=== PATIENT | female | born 1930 | race Caucasian/White ===

== ENCOUNTER 2017-10-06 19:23 | Inpatient (IN) | payer OTHER ==
[~2017-10-06] VITALS: Ht 137.2 cm; Wt 68.6 kg
[~2017-10-06 19:23] MED LIST: ACETAMINOPHEN/O1 TAB PO; AMITRIPTYLINE H10 M1 PO; MAGNESIUM OXID400 MG PO; METAMUCIL1 PAC PO; PANTOPRAZOLE SO40 MG PO; PERIOGARD 473473 ML PO; VERAPAMIL HCL80 MG PO; VITAMIN D50000 IU PO; XARELTO20 MG PO
--- NOTE | 2017-10-06 19:39 | ED GENERAL ADULT ---
History of Present Illness General Chief Complaint: General Adult Stated Complaint: "VOMITING,DIZZINESS, RAPID EYE MOVEMENT,ABD PAIN" Source: patient, family, old records Exam Limitations: no limitations Vital Signs & Intake/Output Vital Signs & Intake/Output Vital Signs Date Time Temp Pulse Resp B/P B/P Pulse O2 O2 Flow FiO2 Mean Ox Delivery Rate 10/07 0029 98.2 64 18 166/80 94 Room Air 10/07 0008 68 160/74 10/06 1934 97.5 76 20 175/90 95 Room Air Allergies Coded Allergies: poison lara extract (Severe, SWELLING ALL OVER 05/13/15) Sulfa (Sulfonamide Antibiotics) (UNKNOWN 05/13/15) Reconcile Medications Amitriptyline HCl 10 MG TABLET 3 TAB PO QHS UNKNOWN (Reported) Cholecalciferol (Vitamin D3) (Vitamin D3) 50,000 UNIT CAPSULE 1 CAP PO QW SUPPLEMENT (Reported) Gabapentin 100 MG CAPSULE 1 CAP PO QHS UNKNOWN (Reported) Rivaroxaban (Xarelto) 20 MG TABLET 1 TAB PO DAILY BLOOD THINNER (Reported) with food Tramadol HCl 50 MG TABLET 1 TAB PO BID PAIN (Reported) Verapamil HCl 80 MG TABLET 1 TAB PO BID HEART (Reported) Triage Note: PT TO TRIAGE WITH DAUGHTER WHO STATES A HALF HOUR AGO PT VOMITED, GOT VERY DIAPHORETIC AND DIZZY. PT C/O DIZZINESS HERE ON ARRIVAL. DENIES CP/SOB. A/O. Triage Nurses Notes Reviewed? yes HPI: This is an 87-year-old female with history of hypertension, A. fib on Xarelto, prior pulmonary embolism, presenting to the emergency department with an episode of abrupt onset dizziness, nausea without vomiting, and difficulty with speech. She was also reported to have felt "sweaty ". Patient was in the car with her daughters when the symptoms started. They were not obviously positional. She had no precipitating trauma or illness or travel. She was initially resistant to coming to the emergency department but eventually acquiesced. She arrives about 1.5 hours after the onset of symptoms. Upon my initial evaluation, the symptoms have completely abated she denies any nausea or dizziness or speech difficulty. She further denies any headache or shortness of breath or chest pain or abdominal pain or diarrhea or constipation or change in appetite. Patient states that she has been compliant with all medications including her Xarelto. (Suraj HIDALGO,Jose) Past History Travel History Traveled to [place] past 21 day No Medical History Any Pertinent Medical History? see below for history Neurological: NONE EENT: NONE Cardiovascular: AFIB, hypertension Respiratory: NONE Gastrointestinal: NONE Hepatic: NONE Renal: NONE Musculoskeletal: NONE Psychiatric: NONE Endocrine: NONE Blood Disorders: PE Cancer(s): NONE SAP PI DEVELOPER/Reproductive: NONE History of MRSA: No History of VRE: No History of CDIFF: No Surgical History Surgical History: LUMBAR SURGERY Psychosocial History Who do you live with Patient/Self Services at Home None What is your primary language Vietnamese Tobacco Use: Never used Family History Family History, If Any: MOTHER FH: stroke BROTHER FH: diabetes mellitus FH: stroke Hx Contributory? No (Jose Ruelas MD) Review of Systems Review of Systems Constitutional: Reports: see HPI, diaphoresis, malaise. EENTM: Reports: see HPI. Respiratory: Reports: no symptoms. Cardiovascular: Reports: no symptoms. GI: Reports: see HPI, nausea. Genitourinary: Reports: no symptoms. Musculoskeletal: Reports: no symptoms. Skin: Reports: no symptoms. Neurological/Psychological: Reports: see HPI. Hematologic/Endocrine: Reports: no symptoms. Immunologic/Allergic: Reports: no symptoms. Comments Patient is able to speak some [place], but her primary language is Vietnamese and her daughters serve to fill in the language gaps. (Jose Ruelas MD) Physical Exam Physical Exam General Appearance: well developed/nourished, no apparent distress, alert, anxious, obese Head: normal appearance Eyes: Bilateral: normal appearance, PERRL, EOMI. Ears, Nose, Throat: normal pharynx, normal ENT inspection, hearing grossly normal Comments: Elderly female, no acute distress. Alert and oriented 4. Speech intact. 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 Cardiopulmonary exam is within normal limits and significant only for irregular heart rhythm. Her lungs are clear. Abdomen is soft, nontender, nondistended. Intact pulse movement sensation in all extremities. Core Measures ACS in differential dx? Yes CVA/TIA Diagnosis: Yes NIH Stroke Scale (24 Hours) NIH Stroke Scale (24 Hours) Response Value Level of Consciousness alert 0 LOC Questions answers both correctly 0 LOC Commands obeys both correctly 0 Best Gaze normal 0 Visual Palafox no visual loss 0 Facial Paresis minor 1 Motor Arm - Left no drift 0 Motor Arm - Right no drift 0 Motor Leg - Left no drift 0 Motor Leg - Right no drift 0 Limb Ataxia no ataxia 0 Sensory normal 0 Best Language no aphasia 0 Dysarthria normal articulation 0 Extinction and Inattention no neglect 0 Total 1 Sepsis Present: No Sepsis Focused Exam Completed? No (Suraj HIDALGO,Joes) Progress Differential Diagnoses I considered the following diagnoses in my evaluation of the patient: Some concern for TIA in this patient given exam, history, and presentation. NIH stroke scale is 1, but this is for a chronic finding and the patient is otherwise neurologically intact upon arrival making the diagnosis of cerebrovascular accident very unlikely. Some concern for posterior circulation pathology given history of vertiginous dizziness prior to arrival. Could also be underlying metabolic derangement or occult infection. Diagnosis of ACS is also considered given history of diaphoresis with onset of symptoms, however would be highly atypical. Plan of Care: Orders Procedure Date/time Status Regular Diet 10/07 B Active TROPONIN LEVEL 10/07 0600 Active MAGNESIUM 10/07 06 Active CBC WITHOUT DIFFERENTIAL 10/07 06 Active BASIC ELECTROLYTES PLUS BUN&CR 10/07 06 Active EKG 10/07 0600 Active Weight 10/07 0024 Active Vital Signs 10/07 0024 Active Teach/Educate 10/07 0024 Active Pain Treatment and Response 10/07 002 Active Nutritional Intake, Monitor 10/07 002 Active Isolation 10/07 0024 Active Intake & Output 10/07 0024 Active Patient Care Conference 10/07 0024 Active Activity/Ambulation 10/07 0024 Active TROPONIN LEVEL 10/06 2300 Complete Patient Data 10/06 2236 Active Telemetry/Linoleum Mechanic 10/06 223 Active Admit to inpatient 10/06 2235 Active Vital Signs 10/06 223 Complete Code Status 10/06 223 Active Straight Cath 10/06 2014 Active FingerStick- Glucose 10/06 2014 Active CULTURE,URINE 10/06 2014 Active URINALYSIS 10/06 2014 Complete TROPONIN LEVEL 10/06 2014 Complete PARTIAL THROMBOPLASTIN TIME 10/06 2014 Complete PROTHROMBIN TIME 10/06 2014 Complete COMPREHENSIVE METABOLIC PANEL 10/06 2014 Complete CBC WITHOUT DIFFERENTIAL 10/06 2014 Complete Intake & Output 10/06 195 Complete EKG 10/06 1927 Active Laboratory Tests 10/06/17 2319: Troponin I < 0.01 08/18/18 2211: Urine Color YEL, Urine Clarity CLEAR, Urine pH 7.5, Ur Specific [place] 1.010, Urine Protein NEG, Urine Ketones NEG, Urine Nitrite NEG, Urine Bilirubin NEG, Urine Urobilinogen 0.2, Ur Leukocyte Esterase SMALL H, Ur Microscopic SEDIMENT EXAMINED, Urine WBC 1-3 H, Ur Epithelial Cells RARE, Urine Hemoglobin NEG, Urine Glucose NEG 10/06/172122: Anion Gap 10, Estimated GFR > 60, BUN/Creatinine Ratio 31.7 H, Glucose 121 H, Calcium 9.3, Total Bilirubin 0.3, AST 22, ALT 31, Alkaline Phosphatase 75, Troponin I < 0.01, Total Protein 6.3, Albumin 4.1, Globulin 2.2, Albumin/ Globulin Ratio 1.9 10/06/172044: PT 15.9 H, INR 1.45 H, APTT 27, CBC w Diff NO MAN DIFF REQ, RBC 4.67, MCV 93.1 , MCH 31.9 H, MCHC 34.2, RDW 13.4, MPV 11.2 H, Gran % 79.5 H, Lymphocytes % 16.3 L, Monocytes % 3.4, Eosinophils % 0.4, Basophils % 0.4, Absolute Granulocytes 9.2 H, Absolute Lymphocytes 1.9, Absolute Monocytes 0.4, Absolute Eosinophils 0.1, Absolute Basophils 0 Microbiology 10/06 2210 URINE ROUT: Urine Culture - RECD Plan for troponin 2, EKG, urinalysis with culture, CTA head and neck, CBCs, CMP , coags, possible admission for TIA workup. Labs are essentially unremarkable. CTA head and neck are unremarkable. EKG shows rate controlled A. fib. Patient able to walk the department without difficulty. Given that she lives alone, the patient's daughters are very concerned that she is not safe to go home tonight and I agree that in this particular scenario, it is more reasonable to pursue inpatient workup for TIA. Patient admitted to medicine service for further management. Patient remains hemodynamically and neurologically stable while under my care in the emergency department with no recurrence of aphasia or dizziness. Care signed out to Dr. Peoples Initial ED EKG: AFIB, no ST T wave changes, LAFB, a fib, rate controlled (Suraj HIDALGO,Jose) Departure Departure Time of Disposition: 2256 Disposition: STILL A PATIENT Condition: Stable Clinical Impression Primary Impression: TIA (transient ischemic attack) Referrals: Latasha HIDALGO,Felipe Garcia (PCP/Family) Departure Forms: Customer Survey General Discharge Information Admission Note Spoke With: Manuel Paulson MD Documentation of Exam: Documentation of any treatments & extenuating circumstances including Concerns Regarding Discharge (functional status, medication knowledge or non-compliance, living conditions, etc.) that warrant an admission rather than observation: Telemetry monitoring, echocardiogram, MRI brain, reassessment. (Jose Ruelas MD) Resident Co-Sign Statement Statement: ED Attending supervision documentation- x I saw and evaluated the patient. I have also reviewed all the pertinent lab results and diagnostic results. I agree with the findings and the plan of care as documented in the Resident's documentation. [] I have reviewed the ED Record and agree with the Resident's documentation. [] Additions or exceptions (if any) to the Resident's note and plan are summarized below: [] (Richelle HIDALGO,Greg) Critical Care Note Critical Care Note Critical Care Time: non-applicable (Jose Ruelas MD)
--- NOTE | 2017-10-06 21:01 | RADIOLOGY REPORT ---
EXAMINATION: XR CHEST CLINICAL INFORMATION: Productive aphasia. COMPARISON: None TECHNIQUE: 2 views of the chest were obtained. FINDINGS: Symmetric lung inflation. No focal consolidation, pleural effusion, or pneumothorax. The cardiac silhouette is enlarged and unchanged. There are no acute osseous findings. Chronic widening of the right acromioclavicular joint. Degenerative changes within the lower thoracic and upper lumbar spine. IMPRESSION: No acute pulmonary process.
[2017-10-06 21:02] LABS: ABSOLUTE BASOPHIL COUNT 0 /CUMM (0.0-0.2); ABSOLUTE EOSINOPHIL COUNT 0.1 /CUMM (0.0-0.7); ABSOLUTE GRANULOCYTE CT 9.2 /CUMM (1.4-6.5); ABSOLUTE LYMPH COUNT 1.9 /CUMM (1.2-3.4); ABSOLUTE MONOCYTE COUNT 0.4 /CUMM (0.10-0.60); BASOPHIL % 0.4 % (0.0-2.0); EOSINOPHIL % 0.4 % (0-5); GRANULOCYTE % 79.5 % (42.2-75.2); HEMATOCRIT 43.4 % (37-47); MEAN CORPUSCULAR HGB 31.9 PG (27.0-31.0); MEAN CORPUSCULAR HGB CONC 34.2 G/DL (33.0-37.0); MEAN CORPUSCULAR VOLUME 93.1 FL (81.0-99.0); MEAN PLATELET VOLUME 11.2 FL (7.4-10.4); RBC DISTRIBUTION WIDTH 13.4 % (11.5-14.5); RED BLOOD CELL CT 4.67 /CUMM (4.20-5.40); WHITE BLOOD CELL COUNT 11.6 /CUMM (4.8-10.8)
[2017-10-06 21:06] LABS: PT 15.9 SEC (9.4-12.5); PTT 27 SEC (25-37)
[2017-10-06 21:48] LABS: PLATELET COUNT 192 /CUMM (130-400)
[2017-10-06] MEDS ORDERED: GABAPENTIN100 M2 PO (22:37)
[2017-10-06] MEDS ORDERED: XARELTO20 M2 PO (22:37)
[2017-10-06] MEDS ORDERED: VERAPAMIL HCL PO (22:37)
[2017-10-06] MEDS ORDERED: AMITRIPTYLINE H10 M2 PO (22:38)
[2017-10-06] MEDS ORDERED: TRAMADOL HCL50 M1 PO (22:38)
[2017-10-06] MEDS ORDERED: VITAMIN D350000 UNIT PO (22:43)
--- NOTE | 2017-10-06 22:51 | History & Physical ---
Derik Soliz 10/06/17 5823: General Information and HPI MD Statement: I have seen and personally examined JADEN PROCTOR and documented this H&P. The patient is a 87 year old F who presented with a patient stated chief complaint of VOMITING, ONE EPISODE OF SPEECH DIFFICULTY. 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 Earlier today, the patient was riding in the car with her daughter, when she felt the need to vomit. The daughter pulled the car over, and the mother got out and vomited. Patient continued to feel ill. After returning home, the patient insisted that the daughter leave. However the daughter stayed in the driveway, and after 10 minutes the patient called the daughter to return.The patient was then brought to the ED. The patient experienced a 10-20 minute episode of slurred speech during her time the ED, but that returned to baseline. The patient and daughter state that this happened before, roughly six or seven months ago. CXR and CTA-head/neck were unremarkable. UA positive for small WBC and small leuk esterase. In the context of this finding, the patient was admitted to telemetry for potential TIA. 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 Home Who Do You Live With? by herself Services at Home: None Primary Language: Pakistani Smoking Status: Never Smoked ETOH Use: denies use Illicit Drug Use: denies illicit drug use Functional Ability ADLs Independent: dressing, eating, toileting, bathing. Ambulation: independent IADLs Independent: shopping, housework, finances, food prep, telephone, medication admin. Needs Assist: transportation. Review of Systems Review of Systems Constitutional: Denies: chills, fever. EENTM: Reports: no symptoms. Cardiovascular: Denies: chest pain, palpitations, syncope. Respiratory: Denies: cough, short of breath. GI: Reports: abdominal pain, nausea, vomiting. Denies: diarrhea. Genitourinary: Denies: dysuria, frequency. Musculoskeletal: Reports: no symptoms. Skin: Reports: no symptoms. Neurological/Psychological: Reports: see HPI. Hematologic/Endocrine: Reports: no symptoms. Immunologic/Allergic: Reports: no symptoms. All Other Systems: Reviewed and Negative Exam & Diagnostic Data Last 24 Hrs of Vital Signs/I&O Vital Signs Date Time Temp Pulse Resp B/P B/P Pulse O2 O2 Flow FiO2 Mean Ox Delivery Rate 10/07 0029 98.2 64 18 166/80 94 Room Air 10/07 0008 68 160/74 10/06 1934 97.5 76 20 175/90 95 Room Air Intake & Output 10/07 0800 10/07 0000 10/06 1600 Intake Total Output Total Balance Patient 158 lb Weight Weight Reported by Patient Measurement Method Physical Exam General Appearance Alert, Oriented X3, Cooperative, No Acute Distress Skin No Rashes, No Breakdown, No Significant Lesion Skin Temp/Moisture Exam: Warm/Dry HEENT Atraumatic, PERRLA, EOMI Neck Supple, No JVD, No thryomegaly Cardiovascular irregular rhythm, no murmurs Lungs Clear to Auscultation, Normal Air Movement Abdomen Normal Bowel Sounds, Soft, No Tenderness Neurological Normal Speech, Strength at 5/5 X4 Ext, Normal Tone, Sensation Intact, Cranial Nerves 3-12 NL Extremities No Clubbing, No Cyanosis, No Edema Last 24 Hrs of Labs/Jovi: Laboratory Tests 10/06/17 2319: Troponin I < 0.01 10/06/17 221: Urine Color YEL, Urine Clarity CLEAR, Urine pH 7.5, Ur Specific Palm 1.010, Urine Protein NEG, Urine Ketones NEG, Urine Nitrite NEG, Urine Bilirubin NEG, Urine Urobilinogen 0.2, Ur Leukocyte Esterase SMALL H, Ur Microscopic SEDIMENT EXAMINED, Urine WBC 1-3 H, Ur Epithelial Cells RARE, Urine Hemoglobin NEG, Urine Glucose NEG 10/06/172122: Anion Gap 10, Estimated GFR > 60, BUN/Creatinine Ratio 31.7 H, Glucose 121 H, Calcium 9.3, Total Bilirubin 0.3, AST 22, ALT 31, Alkaline Phosphatase 75, Troponin I < 0.01, Total Protein 6.3, Albumin 4.1, Globulin 2.2, Albumin/ Globulin Ratio 1.9 10/06/172044: PT 15.9 H, INR 1.45 H, APTT 27, CBC w Diff NO MAN DIFF REQ, RBC 4.67, MCV 93.1 , MCH 31.9 H, MCHC 34.2, RDW 13.4, MPV 11.2 H, Gran % 79.5 H, Lymphocytes % 16.3 L, Monocytes % 3.4, Eosinophils % 0.4, Basophils % 0.4, Absolute Granulocytes 9.2 H, Absolute Lymphocytes 1.9, Absolute Monocytes 0.4, Absolute Eosinophils 0.1, Absolute Basophils 0 Microbiology 10/06 2210 URINE ROUT: Urine Culture - RECD Diagnostic Data EKG Results Atrial fibrillation CXR Results No actue pulmonary process Other Results CTA head/neck - No acute intracranial findings. Assessment/Plan Assessment: 87 year old female with PMH significant for Carter's palsy, atrial fibrillation on Xarelto and verapamil, and fibromyalgia presented with one episode of nausea and vomiting earlier that resolved and admitted for TIA. Problem list/plan: TIA -One short-lived event of expressive aphasia, similar event happened 6-7 months ago -TPA not given; symptoms resolved in less than 20 min -CTA head/neck unremarkable -Check lipid panel -Consider high intensity statin and JOSÉ LUIS for BP control -Consider MRI brain -Neurology consult in the AM -patient currently on xarelto Atrial fibrillation -Continue Xarelto and verapamil -Cardiology consult DVT prophylaxis: on xarelto, ALPS Heart healthy diet Patient is DNR/DNI As Ranked By This Provider Problem List: 1. TIA (transient ischemic attack) 2. Atrial fibrillation Core Measures/Misc (11/05) Acute Coronary Syndrome ACS Diagnosis: No Congestive Heart Failure Congestive Heart Failure Diagnosis No Cerebrovascular Accident CVA/TIA Diagnosis: Yes NIH Stroke Scale: Total 1 Date Last Known Well: 10/06/17 Time Last Known Well: 1999 Symptom Start Date: 10/06/17 Symptom Start Time: 1999 tPA Risk/Benefit discussion I have discussed the risks, benefits, and alternatives of Alteplase treatment including: - If given promptly, can resolve or have major improvement in stroke symptoms. - Bleeding (hemorrhage) is the most common risk that can occur. - Bleeding may occur into the brain and cause~truck terminal manager serious disability~ including - this is rare, affecting about 1% of patients. - Alternative treatments with proven benefit for patients with stroke include aspirin and care in a specialized unit where staff members pay careful attention to a variety of basic aspects of care. tPA given? No Reason tPA not ordered Medical Contraindication Swallow Evaluation Pass Current/Past Hx AFib/AFlutter Yes VTE (View Protocol) VTE Risk Factors Age>40 No Mechanical VTE Prophylaxis d/t N/A MechProphylax Ordered No VTE Pharm Prophylaxis d/t NA PharmProphylax ordered Sepsis (View protocol) Sepsis Present: No If YES complete Sepsis Event Note If YES complete Sepsis Event Note Lauri Bone MD 10/07/17 0245: General Information and HPI MD Statement: I have seen and personally examined JADEN PROCTOR and documented this H&P. The patient is a 87 year old F who presented with a patient stated chief complaint of vomiting and an episode of difficulty speaking. Source of Information: patient, family, old records Exam Limitations: poor historian, language barrier History of Present Illness: 87 year old female with PMH significant for right sided Carter's palsy, paroxysmal atrial fibrillation on Xarelto and verapamil, and fibromyalgia and non diabetic peripheral neuropathic pain, previous h/o of small RUL pulmonary embolism, and in the chart of hypertension and hyperlipidemia although denied by the patient/ family presented with acute onset nausea and vomiting this afternoon. The patient was driving home with family when suddenly she asked them machine puller and laster to vomit. She threw up a small amount, nonbloody but did not feel better. The patient had some associated epigastric pain that she can only describe as the impending sensation of vomiting but denied any history of GERD, burning, or sour taste. Her daughter drove her home and within ten minutes of being home the patient looked diaphoretic, still felt unwell, complained of feeling lightheaded , and was incontinent of urine. The daughter then brought her straight to the ED. While in the ED, the patient had a 10-20 minute episode of slurred speech. Review of systems is only otherwise notable for another transient complaint of what she describes as eye twitching without loss of visual acuity. She denied any fever, chills, sick contacts, questionable ingestions, cough, diarrhea, constipation, or dysuria. At baseline she is very active (gardens), independent , and lives by herself in [place]. She gardens at home. She is a never smoker. She had a negative stress test and mild on echocardiogram in 2013. At the time of evaluation, she has no complaints, has returned to baseline and feels completely better. In the ED, labs were notable for mild leukocytosis, UA with 1-3 WBCs and small LE, normal chemistries, and negative troponin. She underwent an unremarkable chest x-ray and CTA of the head and neck for expressive aphasia which demonstrated volume loss, microangiopathy, no intracranial or arterial abnormalities. She was admitted to telemetry for TIA. Allergies/Medications Compliance With Home Meds: GOOD Past History Medical History Neurological: bells palsy Cardiovascular: AFIB Blood Disorders: PE Other Medical Hx: fibromyalgia Surgical History Surgical History: LUMBAR SURGERY Past Family/Social History Psychosocial History Where do you live? Home Who Do You Live With? by herself Services at Home: None Primary Language: Pakistani Smoking Status: Never Smoked ETOH Use: denies use Illicit Drug Use: denies illicit drug use Functional Ability ADLs Independent: dressing, eating, toileting, bathing. Ambulation: independent Review of Systems Review of Systems Constitutional: Denies: chills, fever. EENTM: Reports: no symptoms. Cardiovascular: Denies: chest pain, palpitations, syncope. Respiratory: Denies: cough, short of breath. GI: Reports: abdominal pain, nausea, vomiting. Denies: diarrhea. Genitourinary: Denies: dysuria, frequency. Musculoskeletal: Reports: no symptoms. Skin: Reports: no symptoms. Neurological/Psychological: Reports: see HPI. Hematologic/Endocrine: Reports: no symptoms. Immunologic/Allergic: Reports: no symptoms. All Other Systems: Reviewed and Negative Exam & Diagnostic Data Last 24 Hrs of Vital Signs/I&O Vital Signs Date Time Temp Pulse Resp B/P B/P Pulse O2 O2 Flow FiO2 Mean Ox Delivery Rate 10/07 0029 98.2 64 18 166/80 94 Room Air 10/07 0008 68 160/74 10/06 1934 97.5 76 20 175/90 95 Room Air Intake & Output 10/07 0800 10/07 0000 10/06 1600 Intake Total Output Total Balance Patient 71.668 kg Weight Weight Reported by Patient Measurement Method Physical Exam General Appearance Alert, Oriented X3, Cooperative, No Acute Distress Cardiovascular irregular rhythm, no murmurs Lungs Clear to Auscultation, Normal Air Movement Abdomen Normal Bowel Sounds, Soft, No Tenderness, No Masses Neurological Normal Gait, Normal Speech, Strength at 5/5 X4 Ext, Normal Tone, Sensation Intact (chronic b/l feet sensation los), Cranial Nerves 3-12 NL Extremities No Clubbing, No Cyanosis, No Edema, Normal Pulses Last 24 Hrs of Labs/Jovi: Laboratory Tests 10/06/17 2319: Troponin I < 0.01 10/06/172210: Urine Color YEL, Urine Clarity CLEAR, Urine pH 7.5, Ur Specific Palm 1.010, Urine Protein NEG, Urine Ketones NEG, Urine Nitrite NEG, Urine Bilirubin NEG, Urine Urobilinogen 0.2, Ur Leukocyte Esterase SMALL H, Ur Microscopic SEDIMENT EXAMINED, Urine WBC 1-3 H, Ur Epithelial Cells RARE, Urine Hemoglobin NEG, Urine Glucose NEG 10/06/172122: Anion Gap 10, Estimated GFR > 60, BUN/Creatinine Ratio 31.7 H, Glucose 121 H, Calcium 9.3, Total Bilirubin 0.3, AST 22, ALT 31, Alkaline Phosphatase 75, Troponin I < 0.01, Total Protein 6.3, Albumin 4.1, Globulin 2.2, Albumin/ Globulin Ratio 1.9 10/06/172044: PT 15.9 H, INR 1.45 H, APTT 27, CBC w Diff NO MAN DIFF REQ, RBC 4.67, MCV 93.1 , MCH 31.9 H, MCHC 34.2, RDW 13.4, MPV 11.2 H, Gran % 79.5 H, Lymphocytes % 16.3 L, Monocytes % 3.4, Eosinophils % 0.4, Basophils % 0.4, Absolute Granulocytes 9.2 H, Absolute Lymphocytes 1.9, Absolute Monocytes 0.4, Absolute Eosinophils 0.1, Absolute Basophils 0 Microbiology 10/06 2210 URINE ROUT: Urine Culture - RECD Diagnostic Data EKG Results atrial fibrillation, rate controlled, no ischemic changes CXR Results Symmetric lung inflation. No focal consolidation, pleural effusion, or pneumothorax. The cardiac silhouette is enlarged and unchanged. There are no acute osseous findings. Chronic widening of the right acromioclavicular joint. Degenerative changes within the lower thoracic and upper lumbar spine. IMPRESSION: No acute pulmonary process. Other Results CTA head neck - No acute intracranial findings. Global cerebral volume loss, global cerebellar volume loss, and chronic microangiopathy. - No significant arterial stenoses and no acute arterial occlusions within the head or neck. - Severe degenerative changes involving the sternoclavicular joints bilaterally. - There is significant periapical lucency surrounding the roots of the most distal left mandibular molar. Assessment/Plan Assessment: 87 year old female with PMH significant for right sided Carter's palsy, paroxysmal atrial fibrillation on Xarelto and verapamil, and fibromyalgia presented with one episode of nausea and vomiting earlier that resolved and admitted for TIA. TIA: Transient expressive aphasia, also occurred six months ago without evaluation NIH scale of 1 on evaluation for facial assymetry, h/o [place] palsy, no acute deficit TPA not given and symptoms resolved in less than twenty minutes CTA Head/Neck unremarkable Passed swallow evaluation Check lipid panel Start high intensity statin and add ACEi for BP control Consider MRI brain Neurology consultation On Xarelto, will discuss addition of antiplatelet therapy vs bleeding risk Atrial fibrillation: Continue Xarelto and Verapamil Unlikely to be embolic etiology for TIA Cardiology consultation, consider echocardiography Fibromyalgia: Continue gabapentin, elavil, and tramadol prn Heart healthy diet DVT ppx-on xarelto DNR/DNI As Ranked By This Provider Problem List: 1. TIA (transient ischemic attack) Core Measures/Misc (11/05) Acute Coronary Syndrome ACS Diagnosis: No Congestive Heart Failure Congestive Heart Failure Diagnosis No Cerebrovascular Accident CVA/TIA Diagnosis: Yes NIH Stroke Scale: Total 1 Date Last Known Well: 10/06/17 Time Last Known Well: 1999 Symptom Start Date: 10/06/17 Symptom Start Time: 1999 tPA Risk/Benefit discussion I have discussed the risks, benefits, and alternatives of Alteplase treatment including: - If given promptly, can resolve or have major improvement in stroke symptoms. - Bleeding (hemorrhage) is the most common risk that can occur. - Bleeding may occur into the brain and cause~residential serious disability~ including - this is rare, affecting about 1% of patients. - Alternative treatments with proven benefit for patients with stroke include aspirin and care in a specialized unit where staff members pay careful attention to a variety of basic aspects of care. tPA given? No Reason tPA not ordered Medical Contraindication Swallow Evaluation Pass Current/Past Hx AFib/AFlutter Yes VTE (View Protocol) VTE Risk Factors Age>40 No Mechanical VTE Prophylaxis d/t N/A MechProphylax Ordered No VTE Pharm Prophylaxis d/t NA PharmProphylax ordered Sepsis (View protocol) Sepsis Present: No If YES complete Sepsis Event Note If YES complete Sepsis Event Note Manuel Paulson MD 10/07/17 0511: General Information and HPI MD Statement: I have seen and personally examined JADEN PROCTOR and documented this H&P. The patient is a 87 year old F who presented with a patient stated chief complaint of []. Source of Information: family Exam Limitations: poor historian, language barrier Allergies/Medications Allergies: Coded Allergies: poison lara extract (Severe, SWELLING ALL OVER 05/13/15) Sulfa (Sulfonamide Antibiotics) (UNKNOWN 05/13/15) Home Med list Amitriptyline HCl 10 MG TABLET 3 TAB PO QHS UNKNOWN (Reported) Cholecalciferol (Vitamin D3) (Vitamin D3) 50,000 UNIT CAPSULE 1 CAP PO QW SUPPLEMENT (Reported) Gabapentin 100 MG CAPSULE 1 CAP PO QHS UNKNOWN (Reported) Rivaroxaban (Xarelto) 20 MG TABLET 1 TAB PO DAILY BLOOD THINNER (Reported) with food Tramadol HCl 50 MG TABLET 1 TAB PO BID PAIN (Reported) Verapamil HCl 80 MG TABLET 1 TAB PO BID HEART (Reported) Past Family/Social History Psychosocial History Smoking Status: Never Smoked ETOH Use: denies use Illicit Drug Use: denies illicit drug use Review of Systems Review of Systems Constitutional: Reports: see HPI. Exam & Diagnostic Data Last 24 Hrs of Vital Signs/I&O Vital Signs Date Time Temp Pulse Resp B/P B/P Pulse O2 O2 Flow FiO2 Mean Ox Delivery Rate 10/07 0029 98.2 64 18 166/80 94 Room Air 10/07 0008 68 160/74 10/06 1934 97.5 76 20 175/90 95 Room Air Intake & Output 10/07 0800 10/07 0000 10/06 1600 Intake Total Output Total Balance Patient 158 lb Weight Weight Reported by Patient Measurement Method Core Measures/Misc (11/05) Sepsis (View protocol) If YES complete Sepsis Event Note If YES complete Sepsis Event Note Attending MD Review Statement Attending Statement Attending MD Statement: examined this patient, discuss w/resident/PA/PLAY THERAPIST, agreed w/resident/PA/PLAY THERAPIST, reviewed EMR data (avail), amended to note Attending Assessment/Plan: This patient is an 87 year old female with significant past medical history for right sided Carter's palsy, paroxysmal atrial fibrillation on Xarelto and verapamil, fibromyalgia, non diabetic peripheral neuropathic pain, and small RUL pulmonary embolism presented with acute onset nausea and vomiting this afternoon. The patient was driving home with family when suddenly she asked them machine puller and laster to vomit. She threw up a small amount, nonbloody but did not feel better. The patient had some associated epigastric pain that she can only describe as the impending sensation of vomiting but denied any history of GERD, burning, or sour taste. Her daughter drove her home and within ten minutes of being home the patient looked diaphoretic, still felt unwell, complained of feeling lightheaded, and was incontinent of urine. The daughter then brought her straight to the ED. While in the ED, the patient had a 10-20 minute episode of slurred speech. She had another transient complaint of what she describes as eye twitching without loss of visual acuity several weeks ago. Upon evaluation in the ED her blood pressure was elevated to the 160s over 80s, mild leukocytosis 11.6, UA with 1-3 WBCs and small LE, normal chemistries, and negative troponin. She underwent an unremarkable chest x-ray and CTA of the head and neck for expressive aphasia which demonstrated volume loss, microangiopathy, no intracranial or arterial abnormalities. She was admitted to telemetry for TIA. Consider neurology and cardiology consultation. Well need to get an MRI of her brain on Sunday. DNR/DNI.
--- NOTE | 2017-10-06 22:53 | CT SCAN REPORT ---
CT ANGIOGRAM NECK WITH CONTRAST CT ANGIOGRAM BRAIN WITH CONTRAST CLINICAL INFORMATION: Productive aphasia, now resolved. COMPARISON: Brain MRI 05/04/2017. TECHNIQUE: Test bolus sequences followed by intravenous administration 95 mL of Optiray 320. Helical imaging was performed in the axial plane from the thoracic inlet to the skull vertex. Delayed postcontrast imaging of the head was also performed. The data was processed at the communications technologist workstation for generation of MIP sequences. Angled MIPs and volume rendered reformatted images were also generated at an offline 3D workstation. Stenoses are assessed in accordance with NASCET criteria unless otherwise indicated. FINDINGS: BRAIN: Global cerebellar volume loss is again noted. There is global cerebral volume loss and there is chronic microangiopathy. Perivascular spaces within the inferior putamen bilaterally redemonstrated. There is no intracranial hemorrhage, hydrocephalus, extra-axial surface collection, midline shift, or other herniation pattern. Huizar to white matter differentiation is diffusely maintained without evidence of an evolved acute territorial infarct. The basilar cisterns are preserved. No significant soft tissue abnormality. No acute osseous abnormality. The paranasal sinuses and the mastoid air cells are well-aerated. CERVICAL SOFT TISSUES AND LUNG APICES: No significant soft tissue findings within the neck. Imaged upper lungs are clear. Severe degenerative changes involving the sternoclavicular joints bilaterally. Cervical spondylosis. There is significant periapical lucency surrounding the roots of the most distal left mandibular molar. NECK CTA: The left common carotid artery arises from the brachiocephalic artery, an anatomic variant. Proximal arch vessels are non-stenotic. The vertebral arteries are codominant. No significant ostial stenosis is visualized on either side. Both vertebral arteries are widely patent throughout their extracranial cervical course. Both common and internal carotid arteries are normal in course and caliber. BRAIN CTA: Calcific atherosclerotic disease results in mild luminal narrowing of the intradural left vertebral artery. Vertebrobasilar system is otherwise widely patent. There is a -type FOUR ROLL CALENDER OPERATOR on the left side. Atherosclerotic calcification throughout the carotid siphons bilaterally without significant stenosis. Timing of the contrast bolus allows assessment of the major dural venous sinuses, which all opacify normally. IMPRESSION: - No acute intracranial findings. Global cerebral volume loss, global cerebellar volume loss, and chronic microangiopathy. - No significant arterial stenoses and no acute arterial occlusions within the head or neck. - Severe degenerative changes involving the sternoclavicular joints bilaterally. - There is significant periapical lucency surrounding the roots of the most distal left mandibular molar.
[2017-10-07 00:29] VITALS: BP 166/80
[2017-10-07 07:04] VITALS: BP 138/68
[2017-10-07 08:13] LABS: ABSOLUTE BASOPHIL COUNT 0 /CUMM (0.0-0.2); ABSOLUTE EOSINOPHIL COUNT 0 /CUMM (0.0-0.7); ABSOLUTE LYMPH COUNT 2.1 /CUMM (1.2-3.4); ABSOLUTE MONOCYTE COUNT 0.5 /CUMM (0.10-0.60); BASOPHIL % 0.4 % (0.0-2.0); EOSINOPHIL % 0.8 % (0-5); GRANULOCYTE % 53.4 % (42.2-75.2); HEMATOCRIT 40.5 % (37-47); MEAN CORPUSCULAR HGB 31.8 PG (27.0-31.0); MEAN CORPUSCULAR HGB CONC 34.1 G/DL (33.0-37.0); MEAN CORPUSCULAR VOLUME 93.3 FL (81.0-99.0); MEAN PLATELET VOLUME 10.3 FL (7.4-10.4); PLATELET COUNT 184 /CUMM (130-400); RED BLOOD CELL CT 4.34 /CUMM (4.20-5.40)
[2017-10-07 08:33] LABS: WHITE BLOOD CELL COUNT 5.7 /CUMM (4.8-10.8)
--- NOTE | 2017-10-07 09:03 | PN- Housestaff ---
See Addendum Subjective Follow-up For: TIA A. fib Subjective: No events on telemetry. No evidence per nursing. Patient seen and examined with family in room. Per family, patient has no repeat symptoms since the episode of speech loss. Patient has no new complaints today. Review of Systems Constitutional: Reports: see HPI. Objective Last 24 Hrs of Vital Signs/I&O Vital Signs Date Time Temp Pulse Resp B/P B/P Pulse O2 O2 Flow FiO2 Mean Ox Delivery Rate 10/07 1502 97.9 58 18 116/60 95 Room Air 10/07 0813 61 146/80 10/07 0704 97.5 61 138/68 10/07 0029 98.2 64 18 166/80 94 Room Air 10/07 0008 68 160/74 10/06 1934 97.5 76 20 175/90 95 Room Air Intake & Output 10/07 1600 10/07 0800 10/07 0000 Intake Total 450 0 Output Total 400 Balance 450 -400 Intake, Oral 450 0 Number 1 Bowel Movements Output, Urine 400 Patient 150 lb Weight Weight Bed scale Measurement Method Physical Exam General Appearance: Alert, Cooperative, No Acute Distress HEENT: Atraumatic, EOMI Cardiovascular: Regular Rate, Normal S1, Normal S2 Lungs: Clear to Auscultation Abdomen: Normal Bowel Sounds, Soft, No Tenderness Neurological: Strength at 5/5 X4 Ext, Cranial Nerves 3-12 NL Extremities: No Tenderness/Swelling Current Medications: Current Medications Sig/Jeffrey Start time Last Medication Dose Route Stop Time Status Admin Acetaminophen 650 MG Q6P PRN 10/07 013 AC PO Amitriptyline HCl 30 MG AT BEDTIME 10/07 013 AC 10/07 PO 0153 Atorvastatin Calcium 40 MG 1700 10/07 1700 AC PO Gabapentin 100 MG AT BEDTIME 10/07 0130 AC 10/07 PO 0153 Lisinopril 5 MG DAILY 10/07 899 AC 10/07 PO 0813 Rivaroxaban 20 MG DAILY 10/07 899 AC 10/07 PO 0812 Tramadol HCl 50 MG BID PRN 10/07 0100 AC PO Verapamil HCl 80 MG BID 10/07 899 AC 10/07 PO 0813 Last 24 Hrs of Lab/Jovi Results Last 24 Hrs of Labs/Mics: Laboratory Tests 10/07/17 0640: Anion Gap 11, Estimated GFR > 60, BUN/Creatinine Ratio 26.7 H, Magnesium 1.9, Troponin I < 0.01, Triglycerides 105, Cholesterol 135, LDL Cholesterol, Calc 73, HDL Cholesterol 41, Cholesterol/HDL Ratio 3, CBC w Diff NO MAN DIFF REQ, RBC 4.34, MCV 93.3, MCH 31.8 H, MCHC 34.1, RDW 13.0, MPV 10.3, Gran % 53.4, Lymphocytes % 36.9, Monocytes % 8.5, Eosinophils % 0.8, Basophils % 0.4, Absolute Granulocytes 3.0, Absolute Lymphocytes 2.1, Absolute Monocytes 0.5, Absolute Eosinophils 0, Absolute Basophils 0 10/06/172318: Troponin I < 0.01 10/06/172210: Urine Color YEL, Urine Clarity CLEAR, Urine pH 7.5, Ur Specific [place] 1.010, Urine Protein NEG, Urine Ketones NEG, Urine Nitrite NEG, Urine Bilirubin NEG, Urine Urobilinogen 0.2, Ur Leukocyte Esterase SMALL H, Ur Microscopic SEDIMENT EXAMINED, Urine WBC 1-3 H, Ur Epithelial Cells RARE, Urine Hemoglobin NEG, Urine Glucose NEG 10/06/172122: Anion Gap 10, Estimated GFR > 60, BUN/Creatinine Ratio 31.7 H, Glucose 121 H, Calcium 9.3, Total Bilirubin 0.3, AST 22, ALT 31, Alkaline Phosphatase 75, Troponin I < 0.01, Total Protein 6.3, Albumin 4.1, Globulin 2.2, Albumin/ Globulin Ratio 1.9 10/06/172044: PT 15.9 H, INR 1.45 H, APTT 27, CBC w Diff NO MAN DIFF REQ, RBC 4.67, MCV 93.1 , MCH 31.9 H, MCHC 34.2, RDW 13.4, MPV 11.2 H, Gran % 79.5 H, Lymphocytes % 16.3 L, Monocytes % 3.4, Eosinophils % 0.4, Basophils % 0.4, Absolute Granulocytes 9.2 H, Absolute Lymphocytes 1.9, Absolute Monocytes 0.4, Absolute Eosinophils 0.1, Absolute Basophils 0 Microbiology 10/06 2210 URINE ROUT: Urine Culture - RES Assessment/Plan Assessment: 87 yo F w PMH of Afib on Xarelto, HTN, Hx of RUL Pulm emboli, Hx of R sided Carter 's Palsy, fibromyalgia, presented to ED after developing CP, N/V, dizziness, flickering vision and one episode of incontinence while in the car with family the day before admission. The symptoms resolved and have not recurred. Family brought her to ED. Per daughter, while in the ED she developed slurring of speech which lasted 10-15 minutes. Patient denied any other associated symptoms such as GERARD, changes in vision, focal weakness, numbness, or paresthesia. Due to high suspicion of TIA, CT and CT angios were performed but negative. She has had at least 2 prior similar episodes of slurred speech lasting 10 minutes several months ago that went unevaluated. CTA HEAD and NECK 10/06/17 IMPRESSION: - No acute intracranial findings. Global cerebral volume loss, global cerebellar volume loss, and chronic microangiopathy. - No significant arterial stenoses and no acute arterial occlusions within the head or neck. Plan: #TIA: Transient expressive aphasia, also occurred six months ago without evaluation TPA not given and symptoms resolved in less than twenty minutes CTA Head/Neck unremarkable Passed swallow evaluation Lipid Panel wnl Started on Atorvastatin 40 MG Neurology considers addition of aspirin 81mg to full dose xarelto high risk for hemorrhage Cardiology agrees with recommendation Cardiology recommends echo and carotid U/S Neurology agrees with current plan, no further neuro workup #Atrial fibrillation: Continue Xarelto 20 mg and Verapamil 80 mg Unlikely to be embolic etiology for TIA #Fibromyalgia: Continue gabapentin, elavil, and tramadol prn Heart healthy diet DVT ppx-on xarelto DNR/DNI Problem List: 1. TIA (transient ischemic attack) 2. Atrial fibrillation Pain Ratin Pain Location: NA Pain Goal: Remain pain free Pain Plan: Per [facility] Tomorrow's Labs & Rationales: No labs indicated
--- NOTE | 2017-10-07 11:52 | Cons- Neurology ---
General Information and HPI Consulting Request Date of Consult: 10/07/17 Requested By: Manuel Paulson MD Reason for Consult: TIA Source of Information: patient, family Exam Limitations: no limitations History of Present Illness: 87 year old woman presented to the ER after developing chest pain, nausea, vomiting, dizziness, flickering vision and one episode of incontinence driving in the car with family yesterday. The symptoms resolved and have not recurred While in the ER she developed slurring of speech which lasted 10-15 minutes according to her daughter. There was no language impairment and the patient denied any other associated symptoms such as headache, visual blurring, lateralized weakness numbness or paresthesia. No associated symptoms were reported in the chart, either. Due to suspicion of a TIA a CT and CT angios were done and unrevealing. She has had 2 prior similar episodes of slurred speech also lasting 10 minutes, one occurred speaking on the phone with a friend, date not remembered but probably several months ago. She has atrial fibrillation and remains on full anticoagulation with rivaroxaban and is very compliant with medications. Allergies/Medications Allergies: Coded Allergies: poison alra extract (Severe, SWELLING ALL OVER 05/13/15) Sulfa (Sulfonamide Antibiotics) (UNKNOWN 05/13/15) Home Med List: Amitriptyline HCl 10 MG TABLET 3 TAB PO QHS UNKNOWN (Reported) Cholecalciferol (Vitamin D3) (Vitamin D3) 50,000 UNIT CAPSULE 1 CAP PO QW SUPPLEMENT (Reported) Gabapentin 100 MG CAPSULE 1 CAP PO QHS UNKNOWN (Reported) Rivaroxaban (Xarelto) 20 MG TABLET 1 TAB PO DAILY BLOOD THINNER (Reported) with food Tramadol HCl 50 MG TABLET 1 TAB PO BID PAIN (Reported) Verapamil HCl 80 MG TABLET 1 TAB PO BID HEART (Reported) Current Medications: Current Medications Sig/Jeffrey Start time Last Medication Dose Route Stop Time Status Admin Acetaminophen 650 MG Q6P PRN 10/07 013 AC PO Amitriptyline HCl 30 MG AT BEDTIME 10/07 013 AC 10/07 PO 0153 Atorvastatin Calcium 40 MG 1700 10/07 1700 AC PO Gabapentin 100 MG AT BEDTIME 10/07 013 AC 10/07 PO 0153 Lisinopril 5 MG DAILY 10/07 899 AC 10/07 PO 0813 Rivaroxaban 20 MG DAILY 10/07 899 AC 10/07 PO 0812 Tramadol HCl 50 MG BID PRN 10/07 0100 AC PO Verapamil HCl 80 MG BID 10/07 0900 AC 10/07 PO 0813 Review of Systems Review of Systems: On the complete medical systems review she has no complaints at this time other than feeling tired or "washed out" she reported past history of Carter's palsy with persistent right upper and lower facial weakness. Specific pertinent negative reports are any further chest pain, nausea, headache, visual disturbance. 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 Home Who Do You Live With? by herself Services at Home: None Primary Language: Japanese Smoking Status: Never Smoked ETOH Use: denies use Illicit Drug Use: denies illicit drug use Functional Ability ADLs Independent: dressing, eating, toileting, bathing. Ambulation: independent IADLs Independent: shopping, housework, finances, food prep, telephone, medication admin. Needs Assist: transportation. Exam & Diagnostic Data Vital Signs and I&O Vital Signs Date Time Temp Pulse Resp B/P B/P Pulse O2 O2 Flow FiO2 Mean Ox Delivery Rate 10/07 0813 61 146/80 10/07 0704 97.5 61 138/68 10/07 0029 98.2 64 18 166/80 94 Room Air 10/07 0008 68 160/74 10/06 1934 97.5 76 20 175/90 95 Room Air Intake & Output 10/07 1600 10/07 0800 10/07 0000 Intake Total 0 Output Total 400 Balance -400 Intake, Oral 0 Output, Urine 400 Patient 150 lb Weight Weight Bed scale Measurement Method Physical Exam: On exam the patient appeared generally well and in no distress. No carotid bruits and no cardiac murmur. No peripheral edema Mental status: Alert, attentive, fully oriented, no language errors, speech accented but not dysarthric, recall and general fund of knowledge seem intact Funduscopic unable to see, myosis and ambient light Visual lucia full , Eye movements full without nystagmus, pupils midsize equal round and reactive to light. Right upper and lower facial weakness moderate severity, old Facial sensation normal bilaterally Hearing intact bilaterally Uvula elevates midline Tongue protrusion is midline Shoulder shrug symmetric Motor power and tone normal in all 4 extremities Sensation tenderness to touch over the feet, no lateralized loss to primary modes Tendon reflexes normal and symmetric without pathologic signs Coordination no ataxia Gait [testing deferred][normal] Last 48 Hours of Lab Results: Laboratory Tests 10/07 10/06 0640 2319 Chemistry Sodium (137 - 145 mmol/L) 139 Potassium (3.5 - 5.1 mmol/L) 4.2 Chloride (98 - 107 mmol/L) 104 Carbon Dioxide (22 - 30 mmol/L) 25 Anion Gap (5 - 16) 11 BUN (7 - 17 mg/dL) 16 Creatinine (0.5 - 1.0 mg/dL) 0.6 Estimated GFR (>60 ml/min) > 60 BUN/Creatinine Ratio (7 - 25 %) 26.7 H Magnesium (1.6 - 2.3 mg/dL) 1.9 Troponin I (< 0.11 ng/ml) < 0.01 < 0.01 Triglycerides (<150 mg/dL) 105 Cholesterol (<200 MG/DL) 135 LDL Cholesterol, Calc (65 - 129 mg/dL) 73 HDL Cholesterol (40 - 60 mg/dL) 41 Cholesterol/HDL Ratio (0.00 - 4.23 %) 3 Hematology CBC w Diff NO MAN DIFF REQ WBC (4.8 - 10.8 /CUMM) 5.7 RBC (4.20 - 5.40 /CUMM) 4.34 Hgb (12.0 - 16.0 G/DL) 13.8 Hct (37 - 47 %) 40.5 MCV (81.0 - 99.0 FL) 93.3 MCH (27.0 - 31.0 PG) 31.8 H MCHC (33.0 - 37.0 G/DL) 34.1 RDW (11.5 - 14.5 %) 13.0 Plt Count (130 - 400 /CUMM) 184 MPV (7.4 - 10.4 FL) 10.3 Gran % (42.2 - 75.2 %) 53.4 Lymphocytes % (20.5 - 51.1 %) 36.9 Monocytes % (1.7 - 9.3 %) 8.5 Eosinophils % (0 - 5 %) 0.8 Basophils % (0.0 - 2.0 %) 0.4 Absolute Granulocytes (1.4 - 6.5 /CUMM) 3.0 Absolute Lymphocytes (1.2 - 3.4 /CUMM) 2.1 Absolute Monocytes (0.10 - 0.60 /CUMM) 0.5 Absolute Eosinophils (0.0 - 0.7 /CUMM) 0 Absolute Basophils (0.0 - 0.2 /CUMM) 0 10/061 2123 Chemistry Sodium (137 - 145 mmol/L) 138 Potassium (3.5 - 5.1 mmol/L) 4.3 Chloride (98 - 107 mmol/L) 101 Carbon Dioxide (22 - 30 mmol/L) 27 Anion Gap (5 - 16) 10 BUN (7 - 17 mg/dL) 19 H Creatinine (0.5 - 1.0 mg/dL) 0.6 Estimated GFR (>60 ml/min) > 60 BUN/Creatinine Ratio (7 - 25 %) 31.7 H Glucose (65 - 99 mg/dL) 121 H Calcium (8.4 - 10.2 mg/dL) 9.3 Total Bilirubin (0.2 - 1.3 mg/dL) 0.3 AST (14 - 36 U/L) 22 ALT (9 - 52 U/L) 31 Alkaline Phosphatase (<127 U/L) 75 Troponin I (< 0.11 ng/ml) < 0.01 Total Protein (6.3 - 8.2 g/dL) 6.3 Albumin (3.5 - 5.0 g/dL) 4.1 Globulin (1.9 - 4.2 gm/dL) 2.2 Albumin/Globulin Ratio (1.1 - 2.2 %) 1.9 Urines Urine Color (YEL,AMB,STR) YEL Urine Clarity (CLEAR) CLEAR Urine pH (5.0 - 8.0) 7.5 Ur Specific [place] (1.001 - 1.035) 1.010 Urine Protein (NEG,<30 MG/DL) NEG Urine Ketones (NEG) NEG Urine Nitrite (NEG) NEG Urine Bilirubin (NEG) NEG Urine Urobilinogen (0.1 - 1.0 EU/dl) 0.2 Ur Leukocyte Esterase (NEG) SMALL H Ur Microscopic SEDIMENT EXAMINED Urine WBC (0 - 2 /HPF) 1-3 H Ur Epithelial Cells (NONE,FEW) RARE Urine Hemoglobin (NEG) NEG Urine Glucose (N MG/DL) NEG 10/06 2044 Coagulation PT (9.4 - 12.5 SEC) 15.9 H INR (0.90 - 1.19) 1.45 H APTT (25 - 37 SEC) 27 Hematology CBC w Diff NO MAN DIFF REQ WBC (4.8 - 10.8 /CUMM) 11.6 H RBC (4.20 - 5.40 /CUMM) 4.67 Hgb (12.0 - 16.0 G/DL) 14.9 Hct (37 - 47 %) 43.4 MCV (81.0 - 99.0 FL) 93.1 MCH (27.0 - 31.0 PG) 31.9 H MCHC (33.0 - 37.0 G/DL) 34.2 RDW (11.5 - 14.5 %) 13.4 Plt Count (130 - 400 /CUMM) 192 MPV (7.4 - 10.4 FL) 11.2 H Gran % (42.2 - 75.2 %) 79.5 H Lymphocytes % (20.5 - 51.1 %) 16.3 L Monocytes % (1.7 - 9.3 %) 3.4 Eosinophils % (0 - 5 %) 0.4 Basophils % (0.0 - 2.0 %) 0.4 Absolute Granulocytes (1.4 - 6.5 /CUMM) 9.2 H Absolute Lymphocytes (1.2 - 3.4 /CUMM) 1.9 Absolute Monocytes (0.10 - 0.60 /CUMM) 0.4 Absolute Eosinophils (0.0 - 0.7 /CUMM) 0.1 Absolute Basophils (0.0 - 0.2 /CUMM) 0 Imaging/Other Studies: CT CTA head and neck: - No acute intracranial findings. Global cerebral volume loss, global cerebellar volume loss, and chronic microangiopathy. - No significant arterial stenoses and no acute arterial occlusions within the head or neck Assessment/Plan Assessment: Transient ischemic attack, no persisting subjective or objective deficits Occurred despite Xarelto Atrial fibrillation on full anticoagulation with Xarelto Unclear cause for the initial symptoms of chest pain nausea vomiting, etc. this is an uncommon pattern of symptoms for an earlier TIA or cerebrovascular event Recommendations: Considered addition of low-dose aspirin to Xarelto but in my opinion the risk of hemorrhagic complications would outweigh the potential benefit No additional neurodiagnostic testing indicated Would add statin, atorvastatin 40 mg once daily Requires further evaluation for the cause of the preceding symptoms, rule out angina or GI problem Consult Acknowledgment - Thank you for your consult request.
--- NOTE | 2017-10-07 13:12 | Cons- Cardiology ---
General Information and HPI Consulting Request Date of Consult: 10/07/17 Requested By: Manuel Paulson MD History of Present Illness: Ms. Paredes is an 87 year old female with history of dyslipidemia and paroxysmal atrial fibrillation. She has not been in atrial fibrillation for an extended period of time. The day before yesterday this patient was feeling well but yesterday she developed a midsternal chest discomfort accompanied by nausea, vomiting and dizziness. A flickering of her vision was reported and she had slurred speech. Her chest discomfort began at rest and her symptoms are now resolved. She denies shortness of breath, ligtheadedness or palpitations. She has been compliant with taking her Xarelto. Due to suspicion of a TIA a CT and CT angios were done and unrevealing. She has had 2 prior similar episodes of slurred speech also lasting 10 minutes, one occurred speaking on the phone with a friend, date not remembered but probably several months ago. Allergies/Medications Allergies: Coded Allergies: poison lara extract (Severe, SWELLING ALL OVER 05/13/15) Sulfa (Sulfonamide Antibiotics) (UNKNOWN 05/13/15) Home Med List: Amitriptyline HCl 10 MG TABLET 3 TAB PO QHS UNKNOWN (Reported) Cholecalciferol (Vitamin D3) (Vitamin D3) 50,000 UNIT CAPSULE 1 CAP PO QW SUPPLEMENT (Reported) Gabapentin 100 MG CAPSULE 1 CAP PO QHS UNKNOWN (Reported) Rivaroxaban (Xarelto) 20 MG TABLET 1 TAB PO DAILY BLOOD THINNER (Reported) with food Tramadol HCl 50 MG TABLET 1 TAB PO BID PAIN (Reported) Verapamil HCl 80 MG TABLET 1 TAB PO BID HEART (Reported) Review of Systems Review of Systems: Carter's palsy Past History Travel History Traveled to [place] past 21 day No Medical History Neurological: Carter's palsy EENT: NONE Cardiovascular: AFIB, hypertension Respiratory: NONE Gastrointestinal: NONE Hepatic: NONE Renal: NONE Musculoskeletal: NONE Psychiatric: NONE Endocrine: NONE Blood Disorders: PE Cancer(s): NONE 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 Home Who Do You Live With? by herself Services at Home: None Primary Language: Kenyan Smoking Status: Never Smoked ETOH Use: denies use Illicit Drug Use: denies illicit drug use Functional Ability ADLs Independent: dressing, eating, toileting, bathing. Ambulation: independent IADLs Independent: shopping, housework, finances, food prep, telephone, medication admin. Needs Assist: transportation. Exam & Diagnostic Data Vital Signs and I&O Vital Signs Date Time Temp Pulse Resp B/P B/P Pulse O2 O2 Flow FiO2 Mean Ox Delivery Rate 10/07 0813 61 146/80 10/07 0704 97.5 61 138/68 10/07 0029 98.2 64 18 166/80 94 Room Air 10/07 0008 68 160/74 10/06 1934 97.5 76 20 175/90 95 Room Air Intake & Output 10/07 1600 10/07 0810/07 0000 10/06 1600 10/06 0000 Intake Total 0 Output Total 400 Balance -400 Intake, Oral 0 Output, Urine 400 Patient 150 lb Weight Weight Bed scale Measurement Method Physical Exam: General: WD/overweight female in NAD; alert and oriented x 3 HEENT: right facial droop, PERRL, EOMI Neck: no JVD, no carotid bruit Heart: RRR w/o murmur Lungs: clear bilaterally Abdomen: soft, NT, +ve bowel sounds Extremities: no edema Assessment/Plan Assessment/Plan * This patient appears to be in a sinus rhythm. It is difficult know if she has been going in and out of atrial fibrillation. She is already on Xarelto which should be continued and I agree with adding aspirin 81mg daily to her drug regimen. * Obtain and echocardiogram and carotid ultrasound * The patient's chest discomfort was transient and at rest and occured in the setting of vomiting. It is likely GI or musculoskeletal in etiology. Her cardiac enzymes are normal and there are no acute ischemic changes on her ECG. I have a low suspicion of myocardial ischemia but an outpatient stress test is reasonable. Consult Acknowledgment - Thank you for your consult request.
[2017-10-07 15:02] VITALS: BP 116/60
[2017-10-07 22:21] VITALS: BP 104/68
--- NOTE | 2017-10-08 06:52 | PN- Housestaff ---
Raudel Miller 10/08/17 0651: Subjective Follow-up For: TIA Subjective: Patient seen and examined sitting comfortably in her bed. She denies any new symptoms. No events on telemetry. Review of Systems Constitutional: Reports: see HPI. Objective Last 24 Hrs of Vital Signs/I&O Vital Signs Date Time Temp Pulse Resp B/P B/P Pulse O2 O2 Flow FiO2 Mean Ox Delivery Rate 10/08 1440 98.1 64 22 112/80 94 10/08 1000 65 138/70 10/08 0739 98.4 64 18 136/68 96 Room Air 10/07 2221 97.4 58 22 104/68 93 Intake & Output 10/08 1600 10/08 0800 10/08 0000 Intake Total 480 120 440 Output Total Balance 480 120 440 Intake, Oral 480 120 440 Patient 143 lb 153 lb Weight Weight Bed scale Measurement Method Physical Exam General Appearance: Alert, Cooperative, No Acute Distress Skin Temp/Moisture Exam: Warm/Dry HEENT: Atraumatic, EOMI Neck: Supple Cardiovascular: Normal S1, Normal S2 Lungs: Clear to Auscultation, Normal Air Movement Abdomen: Normal Bowel Sounds, Soft, No Tenderness Current Medications: Current Medications Sig/Jeffrey Start time Last Medication Dose Route Stop Time Status Admin Acetaminophen 650 MG Q6P PRN 10/07 0130 AC PO Amitriptyline HCl 30 MG AT BEDTIME 10/07 0130 AC 10/08 PO 2001 Atorvastatin Calcium 40 MG 1700 10/07 1700 AC 10/08 PO 1717 Gabapentin 100 MG AT BEDTIME 10/07 0130 AC 10/08 PO 2001 Lisinopril 5 MG DAILY 10/07 09 DC 10/07 PO 0813 Rivaroxaban 20 MG DAILY 10/07 09 AC 10/08 PO 0951 Tramadol HCl 50 MG BID PRN 10/07 0100 AC PO Verapamil HCl 80 MG BID 10/07 09 AC 10/08 PO 2001 Assessment/Plan Assessment: 87 yo F w PMH of Afib on Xarelto, HTN, Hx of RUL Pulm emboli, Hx of R sided Carter 's Palsy, fibromyalgia, presented to ED after developing CP, N/V, dizziness, flickering vision and one episode of incontinence while in the car with family the day before admission. The symptoms resolved and have not recurred. Family brought her to ED. Per daughter, while in the ED she developed slurring of speech which lasted 10-15 minutes. Patient denied any other associated symptoms such as GERARD, changes in vision, focal weakness, numbness, or paresthesia. Due to high suspicion of TIA, CT and CT angios were performed but negative. She has had at least 2 prior similar episodes of slurred speech lasting 10 minutes several months ago that went unevaluated. Echocardiogram 10/07/17 CONCLUSIONS Technically difficult study. Normal global left ventricular size, wall thickness, systolic function with no obvious regional wall motion abnormalities. Left ventricular ejection fraction is estimated at > 55 %. Right ventricle not well visualized, grossly normal. Mild left atrial dilatation. Diffuse thickening of the aortic valve cusps with reduced excursion. Mild aortic stenosis. [id number] aortic regurgitation. Unable to estimate the right ventricular systolic pressure. CTA HEAD and NECK 10/06/17 IMPRESSION: - No acute intracranial findings. Global cerebral volume loss, global cerebellar volume loss, and chronic microangiopathy. - No significant arterial stenoses and no acute arterial occlusions within the head or neck. Plan: #TIA: Transient expressive aphasia, also occurred six months ago without evaluation TPA not given and symptoms resolved in less than twenty minutes CTA Head/Neck unremarkable Passed swallow evaluation Lipid Panel wnl Started on Atorvastatin 40 MG Neurology considers addition of aspirin 81mg to full dose xarelto high risk for hemorrhage Cardiology agrees with recommendation Cardiology recommends echo and carotid U/S Neurology agrees with current plan, no further neuro workup We have DC'd Lisnopril after adding it due to low BP readings Recommend outpt followup with cardiology #Atrial fibrillation: Continue Xarelto 20 mg and Verapamil 80 mg Unlikely to be embolic etiology for TIA #Fibromyalgia: Continue gabapentin, elavil, and tramadol prn Heart healthy diet DVT ppx-on xarelto DNR/DNI Problem List: 1. TIA (transient ischemic attack) Pain Ratin Pain Location: None Pain Goal: Remain pain free Pain Plan: Pathway Tomorrow's Labs & Rationales: None Sarkis Miranda MD 10/08/17 1350: Attending MD Review Statement Attending Statement Attending MD Statement: examined this patient, discuss w/resident/PA/DULITE MACHINE BLUER, agreed w/resident/PA/DULITE MACHINE BLUER, discussed with family, reviewed EMR data (avail), discussed with nursing, discussed with case mgmt, amended to note Attending Assessment/Plan: Seen and examined. Resting comfortably not in any acute distress. Daughter present at the bedside. She is back to baseline. Speech is intact. 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 Symptoms appear to be secondary to a transient ischemic attack. No evidence of stroke is noted on imaging studies. She is medically stable to be discharged back home today. We will follow results of echocardiogram done as part of her workup. The results are negative she may be discharged home later on today. On presentation blood pressure was elevated in the 170 systolic. She had lisinopril added to her home regimen. Blood pressure since improved. She did have a reading of blood pressure in the low 100s. At this point I recommend discontinuation of lisinopril. Patient should continue on home regimen and follow-up with her primary care provider for monitoring of her blood pressure. Mother reports that at previous clinic visits blood pressure has been in the 130s systolic.
[2017-10-08 07:39] VITALS: BP 136/68
--- NOTE | 2017-10-08 12:56 | PN- Cardiology ---
Subjective Subjective: Patient is resting comfortably eating lunch and offers no new complaints. Objective Vital Signs and I&Os Vital Signs Date Time Temp Pulse Resp B/P B/P Pulse O2 O2 Flow FiO2 Mean Ox Delivery Rate 10/08 1000 65 138/70 10/08 0739 98.4 64 18 136/68 96 Room Air 10/07 2221 97.4 58 22 104/68 93 10/07 1502 97.9 58 18 116/60 95 Room Air Intake & Output 10/08 1600 10/08 0810/08 0000 10/07 1600 10/07 0810/07 0000 Intake Total 120 440 450 0 Output Total 400 Balance 120 440 450 -400 Intake, Oral 120 440 450 0 Number 1 Bowel Movements Output, Urine 400 Patient 143 lb 153 lb 150 lb Weight Weight Bed scale Bed scale Measurement Method Physical Exam: General: no apparent distress. Alert. Eyes: No obvious scleral icterus. HEENT: No jugular venous distention or abnormal jugular venous pulsations. Cardiovascular: Normal intensity S1/S2. Regular Respiratory: Lungs clear to auscultation bilaterally. Abdomen: Soft, nontender with no guarding or rebound tenderness. Musculoskeletal: No clubbing or cyanosis noted Skin: warm Neurologic: Facial asymmetry Lymph: No gross lymphadenopathy. Current Medications: Current Medications Sig/Jeffrey Start time Last Medication Dose Route Stop Time Status Admin Acetaminophen 650 MG Q6P PRN 10/07 129 AC PO Amitriptyline HCl 30 MG AT BEDTIME 10/07 129 AC 10/07 PO 2105 Atorvastatin Calcium 40 MG 1700 10/07 1700 AC 10/07 PO 1708 Gabapentin 100 MG AT BEDTIME 10/07 129 AC 10/07 PO 2104 Lisinopril 5 MG DAILY 10/07 899 AC 10/07 PO 08 Rivaroxaban 20 MG DAILY 10/07 899 AC 10/08 PO 0951 Tramadol HCl 50 MG BID PRN 10/07 0100 AC PO Verapamil HCl 80 MG BID 10/07 899 AC 10/08 PO 0951 Results Last 48 Hrs of Labs/Mics: Laboratory Tests 10/07/17 0640: Anion Gap 11, Estimated GFR > 60, BUN/Creatinine Ratio 26.7 H, Magnesium 1.9, Troponin I < 0.01, Triglycerides 105, Cholesterol 135, LDL Cholesterol, Calc 73, HDL Cholesterol 41, Cholesterol/HDL Ratio 3, CBC w Diff NO MAN DIFF REQ, RBC 4.34, MCV 93.3, MCH 31.8 H, MCHC 34.1, RDW 13.0, MPV 10.3, Gran % 53.4, Lymphocytes % 36.9, Monocytes % 8.5, Eosinophils % 0.8, Basophils % 0.4, Absolute Granulocytes 3.0, Absolute Lymphocytes 2.1, Absolute Monocytes 0.5, Absolute Eosinophils 0, Absolute Basophils 0 10/06/179: Troponin I < 0.01 10/06/172210: Urine Color YEL, Urine Clarity CLEAR, Urine pH 7.5, Ur Specific Blakeslee 1.010, Urine Protein NEG, Urine Ketones NEG, Urine Nitrite NEG, Urine Bilirubin NEG, Urine Urobilinogen 0.2, Ur Leukocyte Esterase SMALL H, Ur Microscopic SEDIMENT EXAMINED, Urine WBC 1-3 H, Ur Epithelial Cells RARE, Urine Hemoglobin NEG, Urine Glucose NEG 10/06/172122: Anion Gap 10, Estimated GFR > 60, BUN/Creatinine Ratio 31.7 H, Glucose 121 H, Calcium 9.3, Total Bilirubin 0.3, AST 22, ALT 31, Alkaline Phosphatase 75, Troponin I < 0.01, Total Protein 6.3, Albumin 4.1, Globulin 2.2, Albumin/ Globulin Ratio 1.9 10/06/172044: PT 15.9 H, INR 1.45 H, APTT 27, CBC w Diff NO MAN DIFF REQ, RBC 4.67, MCV 93.1 , MCH 31.9 H, MCHC 34.2, RDW 13.4, MPV 11.2 H, Gran % 79.5 H, Lymphocytes % 16.3 L, Monocytes % 3.4, Eosinophils % 0.4, Basophils % 0.4, Absolute Granulocytes 9.2 H, Absolute Lymphocytes 1.9, Absolute Monocytes 0.4, Absolute Eosinophils 0.1, Absolute Basophils 0 Microbiology 10/06 2210 URINE ROUT: Urine Culture - COMP Recent Imaging Studies: Telemetry tracings were personally reviewed and shows sinus rhythm and sinus bradycardia with no evidence of atrial fibrillation Assessment/Plan Assessment/Plan 1. TIA 2. known paroxysmal atrial fibrillation on Xarelto 3. History of pulmonary embolism 4. History of Carter's palsy Patient remains in sinus rhythm. Remains on chronic anticoagulation with Xarelto. Blood pressure is within normal limits. Echocardiogram is pending. Vincent Rodríguez MD [facility] Continue telemetry? No
[2017-10-08 14:40] VITALS: BP 112/80
--- NOTE | 2017-10-08 20:10 | ECHOCARDIOGRAM REPORT ---
JADEN PROCTOR Age: 87 : 1930 Gender: F Exam Date: 10/08/2017 16:18 Exam Location: 1 [address] Ht (in): 54 Wt (lb): 150 BSA: 1.65 BP: 138 / 70 Ordering Physician: Raudel Miller MD Referring Physician: Yuri Rodríguez M.D. Technologist: Adela Hummel [facility] Room Number: [id number] Indications: TIA Rhythm: Technical Quality: Technically difficult study FINDINGS Left Ventricle Normal global left ventricular size, wall thickness, systolic function with no obvious regional wall motion abnormalities. Left ventricular ejection fraction is estimated at > 55 %. Right Ventricle Right ventricle not well visualized, grossly normal. Right Atrium Right atrium not well visualized, grossly normal. Left Atrium Mild left atrial dilatation. Mitral Valve Mild mitral annular calcification. Trace to mild mitral regurgitation. Aortic Valve Diffuse thickening of the aortic valve cusps with reduced excursion. Mild aortic stenosis. [id number] aortic regurgitation. Tricuspid Valve Tricuspid valve not well visualized, grossly normal. Trace to mild tricuspid regurgitation. Unable to estimate the right ventricular systolic pressure. Pulmonic Valve Pulmonic valve not well visualized. Pericardium No pericardial effusion. Great Vessels Normal size aortic root. CONCLUSIONS Technically difficult study. Normal global left ventricular size, wall thickness, systolic function with no obvious regional wall motion abnormalities. Left ventricular ejection fraction is estimated at > 55 %. Right ventricle not well visualized, grossly normal. Mild left atrial dilatation. Diffuse thickening of the aortic valve cusps with reduced excursion. Mild aortic stenosis. [id number] aortic regurgitation. Unable to estimate the right ventricular systolic pressure. Yuri Rodríguez M.D. (Electronically Signed) Final Date: 08 October 2017 20:09 MEASUREMENTS (Male / Female) Normal Values 2D ECHO LV Diastolic Diameter PLAX 3.8 cm 4.2 - 5.9 / 3.9 - 5.3 cm LV Systolic Diameter PLAX 1.8 cm 2.1 - 4.0 cm LV Fractional Shortening PLAX 52.6 % 25 - 46 % LV Ejection Fraction 2D Teich 84.3 % IVS Diastolic Thickness 0.9 cm LVPW Diastolic Thickness 1.1 cm LV Relative Wall Thickness 0.5 RV Internal Dim ED PLAX 2.5 cm 1.9 - 3.8 cm LVOT Diameter 1.9 cm Aortic Root Diameter 3.0 cm LA Systolic Diameter LX 4.2 cm 3.0 - 4.0 / 2.7 - 3.8 cm LA Volume 36.0 cm 18 - 58 / 22 - 52 cm Ascending Aorta Diameter 3.7 cm DOPPLER AV Peak Velocity 194.0 cm/s AV Peak Gradient 15.1 mmHg AV Mean Velocity 132.0 cm/s AV Mean Gradient 8.0 mmHg AV Velocity Time Integral 43.2 cm LVOT Peak Velocity 101.0 cm/s LVOT Peak Gradient 4.1 mmHg LVOT Mean Velocity 69.2 cm/s LVOT Mean Gradient 2.0 mmHg LVOT Velocity Time Integral 22.1 cm LVOT Stroke Volume 62.7 cm AV Area Cont Eq vti 1.5 cm AV Area Cont Eq pk 1.5 cm MV Peak Velocity 87.8 cm/s MV Peak Gradient 3.1 mmHg MV Mean Velocity 47.7 cm/s MV Mean Gradient 1.0 mmHg Mitral E Point Velocity 72.6 cm/s Mitral A Point Velocity 74.5 cm/s Mitral E to A Ratio 1.0 MV PHT Velocity 86.3 cm/s MV Deceleration Phelps 310.0 cm/s MV Pressure Half Time 83.5 ms MV Area PHT 2.6 cm MV Deceleration Time 236.0 ms TR Peak Velocity 243.0 cm/s TR Peak Gradient 23.6 mmHg Right Atrial Pressure 5.0 mmHg Pulmonary Artery Systolic Pressure 28.6 mmHg Right Ventricular Systolic Pressure 28.6 mmHg PV Peak Velocity 72.3 cm/s PV Peak Gradient 2.1 mmHg PV Mean Velocity 46.1 cm/s PV Mean Gradient 1.0 mmHg PV Velocity Time Integral 14.2 cm LV E' Lateral Velocity 8.2 cm/s Mitral E to LV E' Lateral Ratio 8.9 LV E' Septal Velocity 4.8 cm/s Mitral E to LV E' Septal Ratio 15.2
[2017-10-08 22:17] VITALS: BP 130/92
--- NOTE | 2017-10-09 06:01 | Patient Discharge Instructions ---
Discharge Instructions General Discharge Information You were seen/treated for: TIA Watch for these problems: Dizziness, fainting, sudden vision changes, please come back to ER. Special Instructions: Please follow up with PCP and card processing clerk in one week. Diet Continue normal diet: Yes Activity Full Activity/No Limits: Yes Acute Coronary Syndrome Inclusion Criteria At DC or during hospital stay patient has or had the following: ACS DIAGNOSIS No Discharge Core Measures Meds if any: Prescribed or Continued at Discharge Meds if any: NOT Prescribed or Continued at Discharge Congestive Heart Failure Inclusion Criteria At DC or during hospital stay patient has or had the following: CHF DIAGNOSIS No Discharge Core Measures Meds if any: Prescribed or Continued at Discharge Meds if any: NOT Prescribed or Continued at Discharge Cerebrovascular accident Inclusion Criteria At DC or during hospital stay patient has or had the following: CVA/TIA Diagnosis No Discharge Core Measures Meds if any: Prescribed or Continued at Discharge Meds if any: NOT Prescribed or Continued at Discharge Venous thromboembolism Inclusion Criteria VTE Diagnosis No VTE Type NONE VTE Confirmed by (Test) NONE Discharge Core Measures - Per Current guidelines, there needs to be overlap - treatment for the first 5 days of Warfarin therapy. - If discharged on Warfarin prior to 5 days of - overlap therapy, the patient will need to be - assessed for post discharge needs including - *Post discharge parental anticoagulation - *Warfarin and/or parental anticoagulation education - *Follow up date to check INR post discharge At least 5 days overlap therapy as Inpatient No Meds if any: Prescribed or Continued at Discharge Note: Overlap Therapy is Warfarin and Anticoagulant Meds if any: NOT Prescribed or Continued at Discharge
[2017-10-09] MEDS ORDERED: ATORVASTATIN CA40 M1 PO (06:04)
[2017-10-09 08:03] VITALS: BP 112/68
--- NOTE | 2017-10-09 10:10 | PN- Cardiology ---
Subjective Subjective: Patient feels well. She is without specific complaints. Review of Systems: Eyes no blurred or double vision Ears no deafness or ringing Nose and throat no recurrent sinusitis Lungs per history of present illness Heart per history of present illness Abdomen no nausea vomiting Musculoskeletal occasional muscle and joint pains Psych no anxiety or depression Neuro without recurrent headache or seizures Endocrine no heat or cold intolerance Objective Vital Signs and I&Os Vital Signs Date Time Temp Pulse Resp B/P B/P Pulse O2 O2 Flow FiO2 Mean Ox Delivery Rate 10/09 0803 97.7 56 20 112/68 96 10/08 2357 Room Air 10/08 2217 98.1 63 22 130/92 96 10/08 1440 98.1 64 22 112/80 94 Intake & Output 10/09 1600 10/09 0800 10/09 0000 10/08 1600 10/08 0810/08 0000 Intake Total 50 480 120 440 Output Total Balance 50 480 120 440 Intake, Oral 50 480 120 440 Patient 151 lb 143 lb 153 lb Weight Weight Bed scale Measurement Method Physical Exam: Patient is a well-developed well-nourished female appearing in no acute distress HEENT is unremarkable Neck is supple there is no JVD Lungs are clear Heart regular rhythm S1 and S2 are normal no murmurs gallops or rubs Abdomen bowel sounds positive Extremities without edema Neuro facial asymmetry Psych cooperative Skin no lesions Lymph no adenopathy Current Medications: Current Medications Sig/Jeffrey Start time Last Medication Dose Route Stop Time Status Admin Acetaminophen 650 MG Q6P PRN 10/07 129 AC PO Amitriptyline HCl 30 MG AT BEDTIME 10/07 129 AC 10/08 PO 2001 Atorvastatin Calcium 40 MG 1700 10/07 1700 AC 10/08 PO 1717 Gabapentin 100 MG AT BEDTIME 10/07 129 AC 10/08 PO 2001 Lisinopril 5 MG DAILY 10/07 899 DC 10/07 PO 0813 Rivaroxaban 20 MG DAILY 10/07 899 AC 10/09 PO 0948 Tramadol HCl 50 MG BID PRN 10/07 0100 AC PO Verapamil HCl 80 MG BID 10/07 899 AC 10/08 PO 2001 Results Recent Imaging Studies: Echocardiogram CONCLUSIONS Technically difficult study. Normal global left ventricular size, wall thickness, systolic function with no obvious regional wall motion abnormalities. Left ventricular ejection fraction is estimated at > 55 %. Right ventricle not well visualized, grossly normal. Mild left atrial dilatation. Diffuse thickening of the aortic valve cusps with reduced excursion. Mild aortic stenosis. [id number] aortic regurgitation. Unable to estimate the right ventricular systolic pressure. Yuri Rodríguez M.D. Assessment/Plan Assessment/Plan 1. TIA 2. known paroxysmal atrial fibrillation on Xarelto 3. History of pulmonary embolism 4. History of Carter's palsy 5. Normal ejection fraction greater than 55% with mild aortic stenosis and mild to moderate aortic insufficiency Recommendation 1. Continue Xarelto for stroke prevention 2. Continue verapamil, statin, and lisinopril 3. Plan is for discharge home with outpatient follow-up Continue telemetry? Yes
--- NOTE | 2017-10-09 10:45 | PN- Att Addend ---
Attending Addendum Attending Brief Note Patient seen and examined. Resting comfortably not in any acute distress. No issues overnight. No new complaints today. Denies chest or shortness of breath. Denies palpitations. No events overnight reported by nursing staff. Vital Signs Date Time Temp Pulse Resp B/P B/P Pulse O2 O2 Flow FiO2 Mean Ox Delivery Rate 10/09 0803 97.7 56 20 112/68 96 10/08 2357 Room Air 10/08 2217 98.1 63 22 130/92 96 10/08 1440 98.1 64 22 112/80 94 Intake & Output 10/09 1600 10/09 0800 10/09 0000 Intake Total 50 Output Total Balance 50 Intake, Oral 50 Patient 68.606 kg Weight General appearance: Well-developed and not in any acute distress. HEENT: Anicteric, no pallor, pupils equal and reactive. Neck: Supple with no jugular venous distention. Heart: S1-S2 regular with no audible murmur. Lungs: Adequate and symmetric air entry bilaterally with no added sounds. Abdomen: Nondistended with normal bowel sounds. Soft, nontender with no palpable masses. Extremities: No pedal edema. No cyanosis. Skin: Intact Echocardiogram done yesterday shows ejection fraction of greater than 55%. Mild left atrial dilatation. Mild aortic stenosis. Mild to moderate aortic regurgitation. Unable to estimate right ventricular systolic pressure. Patient has remained asymptomatic with no further neurological changes. Symptoms appear to be secondary to a TIA. She is medically stable to be discharged today. Her blood pressure is controlled and she will continue her home regimen. Statin therapy has been added to her regimen. She is to follow- up with her primary care provider as an outpatient. She is to follow-up with the cardiology service as an outpatient for monitoring of mild to moderate aortic regurgitation.
--- NOTE | 2017-10-09 11:27 | PN- Housestaff ---
Subjective Follow-up For: TIA Subjective: Patient seen and examined sitting up. No acute distress. No events overnight. Patient has no new symptoms. Patient would like us to speak to daughter when she arrives. Review of Systems Constitutional: Reports: see HPI. Objective Last 24 Hrs of Vital Signs/I&O Vital Signs Date Time Temp Pulse Resp B/P B/P Pulse O2 O2 Flow FiO2 Mean Ox Delivery Rate 10/09 0803 97.7 56 20 112/68 96 Intake & Output 10/10 0800 10/10 0000 10/09 1600 Intake Total 360 Output Total Balance 360 Intake, Oral 360 Number 1 Bowel Movements Physical Exam General Appearance: Alert, Cooperative, No Acute Distress Skin Temp/Moisture Exam: Warm/Dry Neck: Supple, +2 Carotid Pulse wo Bruit Cardiovascular: Normal S1, Normal S2 Lungs: Clear to Auscultation, Normal Air Movement Abdomen: Normal Bowel Sounds, Soft, No Tenderness Assessment/Plan Assessment: 87 yo F w PMH of Afib on Xarelto, HTN, Hx of RUL Pulm emboli, Hx of R sided Carter 's Palsy, fibromyalgia, presented to ED after developing CP, N/V, dizziness, flickering vision and one episode of incontinence while in the car with family the day before admission. The symptoms resolved and have not recurred. Family brought her to ED. Per daughter, while in the ED she developed slurring of speech which lasted 10-15 minutes. Patient denied any other associated symptoms such as GERARD, changes in vision, focal weakness, numbness, or paresthesia. Due to high suspicion of TIA, CT and CT angios were performed but negative. She has had at least 2 prior similar episodes of slurred speech lasting 10 minutes several months ago that went unevaluated. Echocardiogram 10/07/17 CONCLUSIONS Technically difficult study. Normal global left ventricular size, wall thickness, systolic function with no obvious regional wall motion abnormalities. Left ventricular ejection fraction is estimated at > 55 %. Right ventricle not well visualized, grossly normal. Mild left atrial dilatation. Diffuse thickening of the aortic valve cusps with reduced excursion. Mild aortic stenosis. [id number] aortic regurgitation. Unable to estimate the right ventricular systolic pressure. CTA HEAD and NECK 10/06/17 IMPRESSION: - No acute intracranial findings. Global cerebral volume loss, global cerebellar volume loss, and chronic microangiopathy. - No significant arterial stenoses and no acute arterial occlusions within the head or neck. Patient has been asymptomatic during hospital course. No focal deficits or further neurological changes appreciated. Blood pressures were well controlled and she should continue home regimen. Advised to followup with PCP. Also advised to follow up with cardiology outpt for her echo results. Plan: #TIA: Transient expressive aphasia, also occurred six months ago without evaluation TPA not given and symptoms resolved in less than twenty minutes CTA Head/Neck unremarkable Passed swallow evaluation Lipid Panel wnl Started on Atorvastatin 40 MG Neurology considers addition of aspirin 81mg to full dose xarelto high risk for hemorrhage Cardiology agrees with recommendation Cardiology recommends echo and carotid U/S Neurology agrees with current plan, no further neuro workup We have DC'd Lisnopril after adding it due to low BP readings Recommend outpt followup with cardiology #Atrial fibrillation: Continue Xarelto 20 mg and Verapamil 80 mg Unlikely to be embolic etiology for TIA #Fibromyalgia: Continue gabapentin, elavil, and tramadol prn Heart healthy diet DVT ppx-on xarelto DNR/DNI Problem List: 1. TIA (transient ischemic attack) Pain Ratin Pain Location: none Pain Goal: Remain pain free Pain Plan: pathway Tomorrow's Labs & Rationales: None
--- NOTE | 2017-10-09 15:45 | Discharge Summary ---
Visit Information Visit Dates Admission Date: 10/06/17 Discharge Date: 10/09/17 Hospital Course Course Attending Physician: Delphine Hernandez MD Primary Care Physician: Felipe Pagan MD Hospital Course: 87 yo F w PMH of Afib on Xarelto, HTN, Hx of RUL Pulm emboli, Hx of R sided Carter 's Palsy, fibromyalgia, presented to ED after developing CP, N/V, dizziness, flickering vision and one episode of incontinence while in the car with family the day before admission. The symptoms resolved and have not recurred. Family brought her to ED. Per daughter, while in the ED she developed slurring of speech which lasted 10-15 minutes. Patient denied any other associated symptoms such as GERARD, changes in vision, focal weakness, numbness, or paresthesia. Due to high suspicion of TIA, CT and CT angios were performed but negative. She had at least 2 prior similar episodes of slurred speech lasting 10 minutes several months ago that went unevaluated. Patient has been asymptomatic during hospital course. No focal deficits or further neurological changes appreciated. Blood pressures were well controlled and she should continue home regimen. Advised to followup with PCP. Also advised to follow up with cardiology outpt for her echo results. Echocardiogram 10/07/17 CONCLUSIONS Technically difficult study. Normal global left ventricular size, wall thickness, systolic function with no obvious regional wall motion abnormalities. Left ventricular ejection fraction is estimated at > 55 %. Right ventricle not well visualized, grossly normal. Mild left atrial dilatation. Diffuse thickening of the aortic valve cusps with reduced excursion. Mild aortic stenosis. [id number] aortic regurgitation. Unable to estimate the right ventricular systolic pressure. CTA HEAD and NECK 10/06/17 IMPRESSION: - No acute intracranial findings. Global cerebral volume loss, global cerebellar volume loss, and chronic microangiopathy. - No significant arterial stenoses and no acute arterial occlusions within the head or neck. Allergies: Coded Allergies: poison lara extract (Severe, SWELLING ALL OVER 05/13/15) Sulfa (Sulfonamide Antibiotics) (UNKNOWN 05/13/15) Disposition Summary Disposition Principal Diagnosis: TIA Additional Diagnosis: None Discharge Disposition: home health services Discharge Instructions General Discharge Information Code Status: Do Not Resucitate/Intubat Patient's Diet: Heart Healthy Patient's Activity: As Tolerated Follow-Up Instructions/Appts: Advised to followup with PCP in a week. Also advised to follow up with cardiology outpt within a week, for her echo results. Medications at Discharge Discharge Medications: Continue taking these medications: Rivaroxaban (Xarelto) 20 MG TABLET 1 Tablet ORAL DAILY Qty = 90 Instructions: with food Comments: Last Taken: 10/09/17 Time: 10:00 AM Verapamil HCl (Verapamil HCl) 80 MG TABLET 1 Tablet ORAL TWICE DAILY Qty = 180 Comments: Last Taken: 10/09/17 Time: 10:30 AM Gabapentin (Gabapentin) 100 MG CAPSULE 1 Capsule ORAL TAKE AT BEDTIME Qty = 30 Comments: Last Taken: 10/08/17 Time: 10:00 PM Tramadol HCl (Tramadol HCl) 50 MG TABLET 1 Tablet ORAL TWICE DAILY Qty = 60 Comments: NOT GIVEN IN HOSPITAL Amitriptyline HCl (Amitriptyline HCl) 10 MG TABLET 3 Tablet ORAL TAKE AT BEDTIME Qty = 270 Comments: Last Taken: 10/08/17 Time: 10:00 PM Cholecalciferol (Vitamin D3) (Vitamin D3) 50,000 UNIT CAPSULE 1 Capsule ORAL Once a Week Comments: NOT GIVEN IN HOSPITAL Start taking the following new medications: Atorvastatin Calcium (Atorvastatin Calcium) 40 MG TABLET 1 Tablet ORAL 5 PM Qty = 30 No Refills Comments: Last Taken: 10/08/16 Time: 5:00 PM
== END 2017-10-09 11:40 | disposition home health service (06) | DRG 69 ==
LOC: ERH 19:23 → 1NO 22:35 → ERHI 22:35 → ENRESERV 22:58 → 1NO 10-07 00:10 → ENTRNSPT 10-09 11:12 → EDTRNSPT 10-09 11:17 → EDTRNSPTSTS 10-09 11:17 → CMPTRNSPT 10-09 11:26 → 1NO 10-09 11:40
PROVIDERS: Preventive Medicine Public Health & General Preventive Medicine; Student in an Organized Health Care Education/Training Program
DX: G45.9 Transient cerebral ischemic attack, unspecified (principal); I10 Essential (primary) hypertension; I48.0 Paroxysmal atrial fibrillation; Z79.01 Long term (current) use of anticoagulants; Z86.711 Personal history of pulmonary embolism; E66.9 Obesity, unspecified; Z68.38 Body mass index [BMI] 38.0-38.9, adult; G51.0 Bell's palsy; Z98.1 Arthrodesis status; Z66 Do not resuscitate; M79.7 Fibromyalgia; Z88.2 Allergy status to sulfonamides
CPT/HCPCS: 1NSP; ERO; 36592; 71046; 81001; 82436; 87086; 93005; 93010; 93306; J3490